=== PATIENT | male | born 1995 | race Caucasian/White ===

== ENCOUNTER 2016-05-17 18:06 | Emergency (ER) | payer MEDICAID ==
[2016-05-17 19:15] LABS: APPEARANCE CLEAR (CLEAR); BILIRUBIN NEGATIVE (NEGATIVE); COLOR DK YELLOW (YELLOW); GLUCOSE NEGATIVE (NEGATIVE); KETONE LARGE mg/dL (NEGATIVE); LEUKOCYTE ESTERASE NEGATIVE (NEGATIVE); NITRITE NEGATIVE (NEGATIVE); PROTEIN NEGATIVE (NEGATIVE); SPECIFIC GRAVITY 1.025 (1.005-1.020); UROBILINOGEN NORMAL (NORMAL)
[2016-05-17 19:21] LABS: BASOPHILS 0.3 % (0.0-2.0); EOSINOPHILS 0.5 % (0-7); HEMATOCRIT 44.5 % (42.0-54.0); HEMOGLOBIN 15.3 g/dL (13.5-17.5); IMMATURE GRANULOCYTES 0.3 % (0-5); LYMPHOCYTES 17.2 % (15-50); MCH 32.1 pg (26.0-34.0); MCHC 34.4 g/dL (31.0-37.0); MCV 93.5 fL (80.0-100.0); MEAN PLATELET VOLUME 9.8 fL (7.4-10.4); MONOCYTES 19.6 % (2-11); NEUTROPHILS 62.1 % (40-80); PLATELET COUNT 170 10x3/uL (130-400); RBC 4.76 10x6/uL (4.20-6.10); WBC 3.8 10x3/uL (4.8-10.8)
[2016-05-17 19:36] LABS: ALBUMIN 4.1 g/dL (3.4-5.0); ALKALINE PHOSPHATASE 64 U/L (46-116); ALT (SGPT) 36 U/L (10-68); AMYLASE - SERUM 64 U/L (25-115); BILIRUBIN - TOTAL 0.52 mg/dL (0.2-1.3); CALC OSMOLALITY 280 mosm/kg (275-300); CALCIUM 9.1 mg/dL (8.5-10.1); CARBON DIOXIDE 29.4 mmol/L (21.0-32.0); CHLORIDE - SERUM 102 mmol/L (98-107); CREATININE - SERUM 0.8 mg/dL (0.6-1.3); GLUCOSE 89 mg/dL (74-106); LIPASE 116 U/L (73-393); POTASSIUM - SERUM 3.8 mmol/L (3.5-5.1); PROTEIN - SERUM 8.1 g/dL (6.4-8.2); SODIUM 141 mmol/L (136-145); UREA NITROGEN 15 mg/dL (7-18); eGFR NON AFRICAN AMERICAN > 90 mL/min (90-120)
== END 2016-05-17 21:05 | disposition home or self-care (01) ==
LOC: D.ER 18:06
PROVIDERS: Emergency Medicine
DX: R10.9 Unspecified abdominal pain (principal); R10.13 Epigastric pain; R11.10 Vomiting, unspecified; K21.9 Gastro-esophageal reflux disease without esophagitis

== ENCOUNTER 2016-10-24 14:06 | Emergency (ER) | payer MEDICAID | END 2016-10-24 15:40 | disposition home or self-care (01) | LOC: D.ER 14:06 | DX: B35.6 Tinea cruris (principal); K21.9 Gastro-esophageal reflux disease without esophagitis ==

== ENCOUNTER 2016-12-06 14:38 | Emergency (ER) | payer MEDICAID | END 2016-12-06 16:10 | disposition home or self-care (01) | LOC: D.ER 14:38 | DX: S63.91XA Sprain of unspecified part of right wrist and hand, initial encounter (principal); X58.XXXA Exposure to other specified factors, initial encounter; Y93.89 Activity, other specified; Y92.019 Unspecified place in single-family (private) house as the place of occurrence of the external cause; K21.9 Gastro-esophageal reflux disease without esophagitis ==

== ENCOUNTER 2017-04-09 13:46 | Emergency (ER) | payer MEDICAID | END 2017-04-09 16:11 | disposition home or self-care (01) | LOC: D.ER 13:46 | DX: M79.671 Pain in right foot (principal); S99.921A Unspecified injury of right foot, initial encounter; X58.XXXA Exposure to other specified factors, initial encounter; Y93.89 Activity, other specified; Y92.89 Other specified places as the place of occurrence of the external cause; K21.9 Gastro-esophageal reflux disease without esophagitis ==

== ENCOUNTER 2017-04-28 18:17 | Emergency (ER) | payer MEDICAID | END 2017-04-29 02:14 | disposition home or self-care (01) | LOC: D.ER 18:17 | DX: R11.10 Vomiting, unspecified (principal); J20.9 Acute bronchitis, unspecified; K21.9 Gastro-esophageal reflux disease without esophagitis ==

== ENCOUNTER 2019-01-18 16:42 | Emergency (ER) | payer MEDICAID ==
[~2019-01-18] VITALS: Ht 175.3 cm; Wt 97.7 kg
[2019-01-18 16:46] VITALS: Ht 175.3 cm; Wt 97.7 kg
[2019-01-18] MEDS ORDERED: ALBUTEROL SULF8.5 GM INH ×2 (16:48→17:44)
[2019-01-18 17:17] LABS: BASOPHILS 0.3 % (0-2); EOSINOPHILS 5.9 % (0-7); HEMOGLOBIN 16.7 g/dL (13.5-17.5); IMMATURE GRANULOCYTES 0.3 % (0-5); LYMPHOCYTES 13.5 % (15-50); MCH 32.6 pg (26.0-34.0); MCHC 34.8 g/dL (31.0-37.0); MCV 93.8 fL (80.0-100.0); MEAN PLATELET VOLUME 10.2 fL (7.4-10.4); RBC 5.12 10x6/uL (4.20-6.10); RDW 12.6 % (11.5-14.5)
[2019-01-18 17:22] LABS: PLATELET COUNT 251 10x3/uL (130-400)
[2019-01-18 17:23] LABS: CALC OSMOLALITY 279 mosm/kg (275-300); CALCIUM 9.5 mg/dL (8.5-10.1); CARBON DIOXIDE 31.9 mmol/L (21.0-32.0); CHLORIDE - SERUM 103 mmol/L (98-107); CREATININE - SERUM 0.7 mg/dL (0.6-1.3); GLUCOSE 92 mg/dL (74-106); POTASSIUM - SERUM 5.1 mmol/L (3.5-5.1); SODIUM 141 mmol/L (136-145); UREA NITROGEN 9 mg/dL (7-18); eGFR NON AFRICAN AMERICAN > 90 mL/min (90-120)
[2019-01-18 17:29] LABS: ALBUMIN 4.3 g/dL (3.4-5.0); ALKALINE PHOSPHATASE 98 U/L (46-116); ALT (SGPT) 86 U/L (10-68); BILIRUBIN - TOTAL 0.66 mg/dL (0.2-1.3)
[2019-01-18] MEDS ORDERED: PREDNISONE50 MG PO (17:44)
[2019-01-18 18:41] VITALS: BP 140/80
== END 2019-01-18 18:43 | disposition home or self-care (01) ==
LOC: D.ER 16:42
PROVIDERS: Family Medicine
DX: J45.901 Unspecified asthma with (acute) exacerbation (principal)

== ENCOUNTER 2020-01-06 17:44 | Emergency (ER) | payer MEDICAID ==
[~2020-01-06] VITALS: Ht 175.3 cm; Wt 104.5 kg
[~2020-01-06 17:44] MED LIST: ALBUTEROL SULF8.5 GM INH; PREDNISONE50 MG PO
[2020-01-06 18:07] VITALS: Ht 175.3 cm; Wt 104.5 kg
[2020-01-06] MEDS ORDERED: AUGMENTIN 875-11 TAB PO (20:03)
[2020-01-06] MEDS ORDERED: CLARITIN 10 MG10 MG PO (20:03)
[2020-01-06] MEDS ORDERED: MEDROL DOSE PACK4 MG PO (20:03)
[2020-01-06] MEDS ORDERED: TESSALON PERLE100 MG PO (20:03)
[2020-01-06 20:40] VITALS: BP 137/99
== END 2020-01-06 20:40 | disposition home or self-care (01) ==
LOC: D.ER 17:44
DX: J32.9 Chronic sinusitis, unspecified (principal); J06.9 Acute upper respiratory infection, unspecified; J45.909 Unspecified asthma, uncomplicated